=== PATIENT | male | born 1970 | race Caucasian/White ===

== ENCOUNTER 2016-11-21 08:40 | Emergency (ER) | payer MEDICAID ==
[~2016-11-21] VITALS: Ht 180.3 cm; Wt 112.5 kg
[~2016-11-21 08:40] MED LIST: IBU600 MG PO; ULTRACET 325 MG1 TAB PO
--- NOTE | 2016-11-21 09:13 | Emergency Room Report ---
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 N Clinical Suspician of Infection? N Mental Status: 1 - Regular (Normal Baseline) Sepsis Risk:Low Sepsis Risk Have you (or family members/close friends) recently traveled outside the [place]? N If Yes, where/when: Have you had exposure to infectious disease within the past month? N TB? Other? Specify: 36 years old white male with no past medical history. 3 days ago, while he was working under a car he had some pieces of rest and to his RIGHT middle finger. he developed a swelling over the distal end of the finger he placed it in water he drained it with a needle and the swelling has subsided but the pain has spread into the proximal femur and the RIGHT palm. He feels like his entire RIGHT upper extremity throbbing with pain in his chest. He denies fever or chills loss of function. 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 Source patient, RN notes reviewed, family Exam Limitations no limitations ALLERGIES Coded Allergies: No Known Allergies (11/21/16) Home Medications Reported Medications No Known Home Medications History Medical History General CAD? No Angina: No [place]: No Hypertension? No Hyperlipidemia? No PE? No COPD? No Asthma? No Anemia? No GERD? No Gastric ulcers? No GI Bleed? No Hernia? No Thyroid Problems? No Hypothyroidism? No CVA? No Seizures? No Diabetes? No Renal Insuffiency? No End Stage Renal Disease? No UTI? No Stones? No BPH? No GB Disease: No Nephritic Syndrome? No Asplenia? No Hepatitis? No Sickle Cell Disease? No Arthritis? No Migraines? No Cataracts? No Glaucoma? No MRSA? No HIV? No TB? No Anxiety? No Depression? No Cancer? No More? No Immunization Hx DT/Tetanus 1-4 Years Ago Surgical Hx Previous Surgery?Y NECK FX R WRIST Social History Smoking Hx Smoker: Current Every Day Smoker Tobacco: Yes Type Cigarettes Packs/day < 1 Pack Alcohol Alcohol: No Review of Systems All Other Systems Reviewed and Negative Constitutional no symptoms reported Eyes no symptoms reported ENT no symptoms reported. Respiratory no symptoms reported Cardiovascular no symptoms reported Gastrointestinal no symptoms reported Genitourinary no symptoms reported. Musculoskeletal see HPI Skin see HPI Psychiatric/Neurological no symptoms reported Physical Exam Vital Signs Vital Signs Date Time Temp Pulse Resp B/P Pulse O2 O2 Flow FiO2 Ox Delivery Rate 11/22 923 20 11/21 0845 98.7 100 16 120/72 98 - WBC >12,000 or <4,000 or 10% bands? 2 or more SIRS Criteria Met? B/P:120/72 MAP:88 Creatinine >2.0? UA output<0.5ml/kg/hr for 2 hrs? Platelet count >100,000? Lactate >2.0mmol/1? INR >1.2 or PTT > than 60 sec? Evidence of Organ Dysfunction? Provider documented clinical suspician of infection? N Sepsis Criteria Count: 1 Sepsis Risk: Low Sepsis Risk General Appearance normal appearance, WD/WN Eye Exam - bilateral eye normal exam, bilateral eye PERRL, bilateral eye EOMI Ear, Nose, Throat hearing grossly normal, normal ENT inspection Neck normal inspection, non-tender, supple, full range of motion Respiratory Status Yes: trachea midline, chest symmetrical, non tender chest. No: respiratory distress. Lung Sounds bilateral: normal breath sounds, lungs clear. Cardiovascular normal exam, regular rate/rhythm, no peripheral edema, no gallop, no JVD, no murmur, no rub, normal peripheral pulses Peripheral Pulses Pulses normal Yes Gastrointestinal normal bowel sounds, normal exam, non tender, soft, no organomegaly Back normal inspection, no CVA tenderness, no vertebral tenderness Extremities swelling, examination of the RIGHT hand revealed moderate swelling of the entire RIGHT middle finger with pus pocket formation in the distal phalanx. tenderness of the RIGHT middle metacarpophalangeal joints, tenderness in the palm, of the RIGHT hand redness along the dorsum of the veins Of the r hand, no palpable axillary lymph nodes. Rectal deferred Nurse present during exam? No Neurologic alert, damage adjuster II-XII nml as tested, normal exam, oriented x 3 Reflexes Reflexes normal Yes Lymphatic no adenopathy Medical Decision Making LABS/Meds/Orders Pt receiving controlled substance in ED? No Results/Orders Laboratory Tests 11/21/16 0907: Lactic Acid Pending 08/06/17 0907: Sodium Pending, Potassium Pending, Chloride Pending, Carbon Dioxide Pending, BUN Pending, Creatinine Pending, Estimated Creat Clear Pending, Estimated GFR (MDRD) Pending, Glucose Pending, Calcium Pending, Total Bilirubin Pending, AST Pending, ALT Pending, Alkaline Phosphatase Pending, Total Protein Pending, Albumin Pending, Globulin Pending, Albumin/Globulin Ratio Pending, WBC Pending, RBC Pending, Hgb Pending, Hct Pending, MCV Pending, RDW Pending, Plt Count Pending, Gran % Pending, Gran # Pending, Lymphocytes % Pending, Eosinophils % Pending, Basophils % Pending, Lymphocytes # Pending, Eosinophils # Pending, Basophils # Pending, PUBS MCHC Pending, MCH Pending Current Medication Orders Sig/Jarrell Start time Last Medication Dose Route Stop Time Status Admin Ketorolac 0 .STK-MED ONE 11/21 916 DC Tromethamine .ROUTE Ondansetron HCl 0 .STK-MED ONE 11/22 915 DC .ROUTE Ketorolac 30 MG ONCE ONE 11/21 914 DC 11/21 Tromethamine IV 11/22 915 0924 Ondansetron HCl 4 MG ONCE ONE 11/21 914 DC 11/21 IV 11/22 915 0917 Ceftriaxone Sodium 1 GM ONCE ONE 11/21 899 AC Sodium Chloride 50 ML IV 11/21 928 Lidocaine HCl 0 .STK-MED ONE 11/21 08 DC .ROUTE Orders Procedure Date/time Status IV SALINE LOCK 11/21 914 Active HAND-RT 3 VIEWS 11/21 857 Active CULTURE, BLOOD 11/21 857 Active LACTIC ACID 11/21 857 Active CBC WITH AUTO DIFF 11/21 857 Active CHEM 12 PROFILE 11/21 857 Active XRAY/CT/US XRAY/CT/US XRAY hand XR interpretation by reviewed by me Xray Results sts no radiopaque FB Departure Departure Time of Disposition 909 Disposition DC/XFER from ER to [facility] Clinical Impression Primary Impression: Tenosynovitis of fingers Secondary Impressions: Cellulitis of hand Condition STABLE Referrals LARA CLAROS Additional Instructions I discussed with the patient has physical findings, started an IV ABx and obtained labs and x rays, he was given pain medicine. Surgeon contacted I spoke with hand surgeon regional climate change analyst Dr. CLAROS who accepted the patient to be seen in the ED for a possible admission. The agreed to be transfered by EMS. Dr. Teague Discharge Counseling Counseled pt/family regarding diagnosis, test results, home care, follow up needs Prescriptions Current Visit Scripts No Known Home Medications ED Critical Care Critical Care No at 0172
[2016-11-21 09:28] LABS: LYMPH # 1.6 K/mm3 (0.7-4.5); LYMPH % 12.7 % (10-50)
[2016-11-21 09:55] VITALS: BP 128/95
--- NOTE | 2016-11-21 12:43 | RADIOLOGY REPORT PS360 ---
HAND-RT 3 VIEWS HISTORY: FINGER INFECTION SPREADING TO THE PALM pain. Infection. Swelling 2 days.. Patient Age: 46 years: Male Ordering Physician: Maverick Teague MD TECHNIQUE: 3 views right hand COMPARISON : FINDINGS Soft tissues joint is most evident at the third, long finger and extends towards the hand.. No radiopaque foreign body is seen here. Prominent swelling however is evident throughout the third finger. Small osseous density off the radial corner a suspect proximal phalanx appears old. Tiny. . Mild flexion deformity at the third finger due to these features thus fairly could not be straightened out. For today's images. The metacarpals are intact. Carpals intact. Borderline narrowing at MCP joint. IMPRESSION: Prominent Soft tissue swelling third finger which extends to the hand.. No radiopaque foreign body. Osseous structures appear intact with no significant findings.
== END 2016-11-21 10:11 | disposition short-term general hospital (02) ==
LOC: ER 08:40
PROVIDERS: Emergency Medicine
DX: M65.841 Other synovitis and tenosynovitis, right hand (principal); L03.011 Cellulitis of right finger; Z72.0 Tobacco use
CPT/HCPCS: J2405